=== PATIENT | female | born 1980 | race Caucasian/White ===

== ENCOUNTER 2023-08-13 02:53 | Emergency (ER) | payer BC, SELFPAY ==
[2023-08-13 03:05] VITALS: BP 176/94; PULSE 71; RESP 18; TEMP 36.8; O2SAT 98; BMI 43.4
[2023-08-13] MEDS: methylPREDNISolone Sod Succ 125 MG/2 ML VIAL IVPUSH (03:20)
[2023-08-13] MEDS: Famotidine/PF 20 MG/2 ML VIAL IVPUSH (03:20)
[2023-08-13] MEDS: diphenhydrAMINE HCL 50 MG/ML VIAL 25 MG IVPUSH (03:20)
--- NOTE | 2023-08-13 03:20 | ED_ITS ---
HPI - Allergic Reaction General Chief complaint: Dental/Oral Stated complaint: swollen face Time Seen by Provider: 08/13/23 03:06 Source: patient and family Mode of arrival: ambulatory Limitations: no limitations History of Present Illness HPI narrative: 42 yo female with PMH of hysterectomy here with c/o R sided lower molar pain x 1 day. Put oral gel on tooth prior to going to bed woke up with swollen lower lip and R sided facial swelling. Has not had issue before like this. Not on RILEY-i. No issues with swelling in mouth or difficulty breathing. There is mild redness to R side of face as well. 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) Related Data Previous Rx's ?Medication ?Instructions ?Recorded amoxicillin 875 mg-potassium 1 tab PO BID #14 tabs 08/13/23 clavulanate 125 mg tablet loratadine 10 mg tablet (Claritin) 10 mg PO DAILY PRN allergic 08/13/23 symptoms #30 tabs prednisone 20 mg tablet 40 mg (2 x 20 mg) PO DAILY 3 days 08/13/23 #6 tabs Allergies Allergy/AdvReac Type Severity Reaction Status Date / Time latex [LATEX] Allergy Unknown RASH Verified 08/13/23 03:10 FRUIT PUNCH Allergy Severe DIFF Uncoded 01/17/20 18:21 BREATHING Review of Systems Review of Systems: Constitutional : No Fever, No Chills ENT/Mouth : No swallowing difficulty, no change in voice, positive dental pain, positive jaw pain, positive facial swelling, pos lip swelling Eyes: No Eye Pain, No Swelling Cardiovascular : No Chest Pain, No SOB Respiratory : No Cough, No Sputum Gastrointestinal : No Nausea, No Vomiting, No Diarrhea Genitourinary : No Dysuria Musculoskeletal : No Myalgias Skin : pos rash Neuro : No Weakness, No Numbness, No Headache All other systems reviewed and are negative [facility] Past Medical History Attestation statement: The following information was validated with the patient. Source: old records reviewed Medical History (Updated 08/13/23 @ 04:05 by Mariann Maxwell DO) No pertinent past medical history Surgical History (Updated 08/13/23 @ 03:47 by Mariann Maxwell DO) History of hysterectomy Social History Social History (Updated 08/13/23 @ 03:47 by Mariann Maxwell DO) Patient Tobacco Use Status: Never used Tobacco Smoked in Last 30 Days: No Use of substances other than those prescribed or required for medical reasons: No Advance Directives: No Advance Directives Information Provided: Yes Physical Exam ED Vital Signs: Vital Signs - 24 hr 08/13/23 03:05 08/13/23 04:00 Temperature 98.2 F 98.3 F Pulse Rate 71 60 Respiratory Rate 18 18 Blood Pressure 176/94 H 148/72 H Pulse Oximetry 98 100 Oxygen Delivery Method Room Air Room Air BMI result Body Mass Index 43.4 Appearance: Alert. Oriented X3. No acute distress. Eyes: Pupils equal, round and reactive to light. ENT: R lower lip is boggy and swollen R side of face is red and swollen but no hot to touch no submandibular or sublingual swelling the gums on left side are boggy but not fluctuant - symptoms seem more allergic than abscess Neck: Normal inspection. Neck supple. CVS: Normal heart rate and rhythm. Pulses normal. Respiratory: No respiratory distress. Breath sounds normal. Abdomen: Soft and nontender. Skin: Skin warm and dry. Normal skin color. Normal skin turgor. Extremities: No lower extremity edema. No calf ttp Neuro: Oriented X 3. No motor deficit. No sensory deficit. Course Course Course Narrative: swelling has improved lip is still swollen but face has improved Reevaluation(s) Reevaluation #1: symptoms improved stable for DC Medications Administered Discontinued Medications Generic Name Dose Route Start Last Admin Trade Name Freq PRN Reason Stop Dose Admin Diphenhydramine HCl 25 mg 08/13/23 03:14 08/13/23 03:20 Diphenhydramine Hcl 50 Mg/Ml Vial IVPUSH 08/13/23 03:15 25 mg ONCE ONE Administration Famotidine 20 mg 08/13/23 03:14 08/13/23 03:20 Famotidine/Pf 20 Mg/2 Ml Vial IVPUSH 08/13/23 03:15 20 mg ONCE ONE Administration Methylprednisolone Sodium Succinate 125 mg 08/13/23 03:14 08/13/23 03:20 Methylprednisolone Sod Succ 125 Mg/2 Ml Vial IVPUSH 08/13/23 03:15 125 mg ONCE ONE Administration Medical Decision Making Medical Decision Making MDM Narrative: 42 yo female with swelling to R side of face and lips after topical OTC oral gel her lips and face appear more allergic vs infectious will start her on IV steroids, pepcid and benadryl she has no airway involvement and it is unilateral at this time will observe and monitor - if she improves will start her on augmentin as well and she is already aware not to use any topical medications like that in the future. Differential Diagnosis Differential Diagnoses: The differential diagnosis associated with the presentation includes allergic reaction, dental infection Admission/Observation Consideration of admission/observation: Escalation of care including admission/observation considered symptoms improved has minimal lip lower right swelling no worsening can be safely discharged home Independent Historian Clinical information obtained from an independent historian. History obtained from or confirmed by: Spouse External Record Review External record reviewed: Office record Prescription Management I considered prescription management with: Antibiotic and Other Discharge Plan Discharge Clinical Impression: Toothache Allergic reaction Qualifiers: Encounter type: initial encounter Qualified Code(s): T78.40XA - Allergy, unspecified, initial encounter Patient Disposition: Home, Self-Care Instructions: Toothache (ED), General Allergic Reaction (ED) Additional Instructions: never use topical analgesia for toothache in the future also let the dentist know about this reaction return for worsening swelling difficulty breathing or any other concerns finish all antibiotics will also put you on short course steroids and claritin for allergy call 911 if you develop worsening swelling or throat closing or diff breathing Prescriptions: New prednisone 20 mg tablet 40 mg PO DAILY 3 Days Qty: 6 0RF amoxicillin-pot clavulanate 875-125 mg tablet 1 tab PO BID Qty: 14 0RF loratadine [Claritin] 10 mg tablet 10 mg PO DAILY PRN (Reason: allergic symptoms) Qty: 30 0RF Stand Alone Forms: Work/School Release Print Language: [place]raini
--- NOTE | 2023-08-13 03:27 | PC.NURSE ---
pt from home, a&ox4, respirations even and unlabored. pt reporting onset of right sided tooth pain, reports using oral gel and then reports increased mouth swelling. pt speaking in full clear sentences, denies sob and chest pain. 20G placed in left ac, medicated per jun.
[2023-08-13 04:00] VITALS: BP 148/72; PULSE 60; RESP 18; TEMP 36.8; O2SAT 100
--- NOTE | 2023-08-13 04:40 | PC.NURSE ---
pt facial swelling noted to be decreased. pt ambulated to bathroom with steady gait.
[2023-08-13 06:00] VITALS: BP 138/93; PULSE 65; RESP 18; TEMP 37; O2SAT 98
[2023-08-13 06:16] VITALS: BP 138/93; PULSE 65; RESP 18; TEMP 37; O2SAT 98
== END 2023-08-13 06:17 | disposition home or self-care (01) ==
PROVIDERS: Emergency Provider Emergency Medicine
DX: K08.89 Other specified disorders of teeth and supporting structures (principal); R22.0 Localized swelling, mass and lump, head
CPT/HCPCS: 96374; 96375; 99284; J1200; J2919; J2930